=== PATIENT | male | born 1955 | race Caucasian/White ===

== ENCOUNTER 2022-07-13 07:50 | Emergency (ER) | payer OTHER, SELFPAY ==
[2022-07-13 08:00] VITALS: BP 138/73; PULSE 76; RESP 18; TEMP 36.7; O2SAT 97; BMI 31.9
--- NOTE | 2022-07-13 08:24 | CRLHL7_ITS ---
For Patients: As a result of the Cures Act, medical imaging exams and procedure reports are released immediately into your electronic medical record. You may view this report before your referring provider. If you have questions, please contact your health care provider. Indication: Crush injury Technique: Three-views left long finger Comparison: None Findings: Small chronic ossicles are present adjacent to the PIP joint and DIP joint the left long finger. No fracture. No dislocation. Impression: No sign of acute injury. Dictated by Sebastian Ramsay MD @ 07/13/2022 8:42:55 AM (Electronically Signed)
--- NOTE | 2022-07-13 08:25 | ED_ITS ---
HPI - Extremity Injury (Upper) General Chief Complaint: Extremity Pain/Injury, Upper Stated Complaint: WC/injured middle finger on left hand Time Seen by Provider: 07/13/22 08:24 History of Present Illness HPI narrative: This 66-year-old male comes in with an injury to his left middle finger. This occurred a couple days ago. He was working with a machine attempting to cut some plastic. The machine fell down onto his finger at some point. He had a small amount of bleeding under the nail. He comes in with swelling and pain of the distal portion of this finger. His range of motion is intact. Related Data Home Medications Medication Instructions Recorded Confirmed lisinopril 10 mg tablet mg 07/13/22 metformin 500 mg tablet mg 07/13/22 Previous Rx's Medication Instructions Recorded ketorolac 10 mg tablet 10 mg PO Q8H 5 days #15 tabs 07/13/22 Allergies Allergy/AdvReac Type Severity Reaction Status Date / Time No Known Drug Allergies Allergy Verified 07/13/22 08:18 Review of Systems Status of ROS: Reports: 10 or more systems reviewed and unremarkable except as noted in History and below Narrative: Constitutional: No fevers, no weight gain or loss. Eyes: No discharge. No vision changes. HENT: No congestion, no sore throat, no ear pain. Cardiovascular: No chest pain, no palpitations. Respiratory: No shortness of breath, no wheezes, no cough. Gastrointestinal: No abdominal pain, no vomiting, no diarrhea. Genitourinary: No dysuria, no hematuria. Musculoskeletal: Normal range of motion. Left middle finger injury as described above. Skin: No rashes, no pruritis. Neurological: No dizziness, weakness, sensory change, speech change. Endo/Heme/Allergies: No bruising or bleeding. No polydipsia. Pysch: no suicidality, no anxiety, no insomnia. All other systems reviewed and are negative. PFSH PFSH Social History Smoking Status: Former smoker What tobacco products do you use: cigarettes Years smoked: 4 Smoking quit date/years: >15 years ago Do you use any of these nicotine containing products: None Second hand tobacco smoke exposure: No How often do you have a drink containing alcohol: never How often do you have six or more drinks on one occasion: Never AUDIT-C Alcohol total score: 0 Non-prescribed substance use: denies use service: No Exam Narrative: Exam Narrative: Constitutional: Well-developed, well-nourished, no acute distress. HEENT: Normocephalic, atraumatic. Neck: Normal range of motion. Nontender. Supple. Heart: Intact distal pulses. Lungs: No chest discomfort. No wheezes, rhonchi, or rales. Abdomen: Nontender. Back: Normal range of motion. Extremities: Normal range of motion. The distal segment of the left middle finger is has swelling and slight bruising. The fingernail is intact. There is no sign of laceration. Skin: Intact. No rash. Warm. No erythema or pallor. Neurologic: No altered sensation. No weakness. Alert and oriented. Psychiatric: No suicidality. No anxiety or depression. No insomnia. Nursing notes and vitals signs are reviewed. Const: Vital Signs, click to edit/add: Vital Signs - 24 hr 07/13/22 08:00 Temperature 98.1 F Pulse Rate [Left] 76 Respiratory Rate 18 Blood Pressure [Le ft Upper Arm] 138/73 Pulse Oximetry 97 Oxygen Delivery Me thod Room Air Course Vital Signs Vital signs: Initial Vital Signs Temperature 98.1 F 07/13/22 08:00 Temperature Source Temporal Artery Scan 07/13/22 08:00 Pulse Rate 76 07/13/22 08:00 Pulse Rhythm 07/13/22 08:00 Respiratory Rate 18 07/13/22 08:00 Blood Pressure 138/73 07/13/22 08:00 Blood Pressure Mean 94 07/13/22 08:00 Blood Pressure Position Supine 07/13/22 08:00 Pulse Oximetry 97 07/13/22 08:00 Oxygen Delivery Method 07/13/22 08:00 Vital Signs Temperature 98.1 F 07/13/22 08:00 Pulse Rate 76 07/13/22 08:00 Respiratory Rate 18 07/13/22 08:00 Blood Pressure 138/73 07/13/22 08:00 Pulse Oximetry 97 07/13/22 08:00 Oxygen Delivery Method 07/13/22 08:00 Temperature 98.1 F 07/13/22 08:00 Pulse Rate 76 07/13/22 08:00 Respiratory Rate 18 07/13/22 08:00 Blood Pressure 138/73 07/13/22 08:00 Pulse Oximetry 97 07/13/22 08:00 Oxygen Delivery Method 07/13/22 08:00 MDM - Extremity Injury (Upper) MDM Narrative Medical decision making narrative: This patient comes in with pain and swelling in the distal portion of his left middle finger from an injury that occurred a couple days ago. There is very slight amount of bruising or erythema. It does not appear that there is an infection and there is no break in the skin or the nail. He does have swelling that is causing discomfort. X-ray of this finger shows no acute findings. The patient received a finger splint and a prescription for some tablets of Toradol. I did describe signs and symptoms that would indicate a need for return and re- evaluation. Imaging Data XR L Middle Finger: Radiologist's impression: Findings: Small chronic ossicles are present adjacent to the PIP joint and DIP joint the left long finger. No fracture. No dislocation. Impression: No sign of acute injury. Discharge Plan Discharge Clinical Impression: Finger injury Patient Disposition: Home, Self-Care Condition: Stable Additional Instructions: Wear splint as needed. Take medication as needed and indicated. Follow up with MD or return if worsening. Prescriptions: New ketorolac 10 mg tablet 10 mg PO Q8H 5 Days Qty: 15 0RF No Action metformin 500 mg tablet Label Comments: TAKE 2 TABLETS BY MOUTH TWICE DAILY WITH MEALS lisinopril 10 mg tablet Label Comments: TAKE 1 TABLET BY MOUTH DAILY Follow Up/Referrals: Bull Contreras MD [Primary Care Provider] - Stand Alone Forms: [employer] Info Instructions
--- OUTSIDE RECORDS SUMMARY | 2022-07-13 08:47 | XMS_ITS ---
:1955 Author Care Team Providers Name Role Phone Jacob Lin Primary Care Provider Unavailable Allergies None recorded. Medications Name Status Start Date Stop Date ? ? atorvastatin 10 mg tablet Active ? Not av ailable TAKE ONE TABLET BY MOUTH EVERY DAY docusate sodium 100 mg capsule Active ? N ot available Take 1 capsule every day by oral route as needed. as needed for constipation metformin 500 mg tablet Active ? Not avai lable Take 2 tablets in the morning and 1 tab let at night for a total of 1500 mg per day. Problems Name Status Onset Date Source ? Type 2 Diabetes Mellitus Active 01/02/2021 ? Dyslipidemia Active 01/02/2021 ? Procedures None recorded. Results Lab Results Date Name Specimen Result Interpretation Description Value Range Status Address ? 12/31/2020 Glycohemoglobin, High A1C 8.5 % <6.4 % ? [place] [facility] : [address] [facility] 12/31/2020 Lipid Panel, Serum ? Creatinine 0.7 ? Final ? ? ? Alt 13 ? Final ? ? ? White Blood 5.73 ? Final Count ? ? ? Hemoglobin 14.6 ? Final ? ? ? Platelet Count 200 ? Final ? ? ? Total 139 ? Final Cholesterol ? ? ? Triglycerides 256 ? Final ? ? ? Hdl 29 ? Final ? ? ? Ldl 59 ? Final 12/31/2020 CBC W/ Auto Diff ? Creatinine 0.7 ? Final ? ? ? Alt 13 ? Final ? ? ? White Blood 5.73 ? Final Count ? ? ? Hemoglobin 14.6 ? Final ? ? ? Platelet Count 200 ? Final ? ? ? Total 139 ? Final Cholesterol ? ? ? Triglycerides 256 ? Final ? ? ? Hdl 29 ? Final ? ? ? Ldl 59 ? Final 12/31/2020 CMP, Serum or ? Creatinine 0.7 ? F inal Plasma ? ? ? Alt 13 ? Final ? ? ? White Blood 5.73 ? Final Count ? ? ? Hemoglobin 14.6 ? Final ? ? ? Platelet Count 200 ? Final ? ? ? Total 139 ? Final Cholesterol ? ? ? Triglycerides 256 ? Final ? ? ? Hdl 29 ? Final ? ? ? Ldl 59 ? Final Past Encounters 10/11/2021 Administration of SARS-CoV-2 mRNA TIANNA Mcnulty: [address] [facility] [place] [address], Ph. 01/24/2021 Type 2 Diabetes Mellitus without Complic ation; Constipation; Hyperlipidemia Ez Heath MD: [address] [facility] [place] [address], Ph. Social History None recorded. Vaccine List Vaccine Type COVID-19, mRNA, LNP-S, PF, 30 mcg/0.3 mL dose, rashad-sucrose ([employer]) 10/11/2021?0.3 Plan of Care Patient Instructions 1. Increase metformin to 2 tabs in AM a nd 1 tab in PM (total of 1500 mg). 2. Plan for a repeat of labs in 3 months. 3. See your charge coordinator for your yearly eye exam. 4. Keep your appointment with your denti st tomorrow. 4. Try docusate for your bowel movement. His goal is to have 1 good BM a day or every other day. If he finds that this medicine causes more BM than said g oal, he should stop taking it. If starts feeling constipated again, he should re- start it. Reminders Provider Appointments None recorded. ? ? Lab None recorded. ? ? Referral None recorded. ? ? Procedures None recorded. ? ? Surgeries None recorded. ? ? Imaging None recorded. ? ? Vitals Height Weight BMI Blood Pressure 5 ft 7 in 202 lbs 31.6 kg/m2 141/70 mm[Hg]
--- OUTSIDE RECORDS SUMMARY | 2022-07-13 08:47 | XMS_ITS | Clinical Summary ---
:1955 External Reference #:[id number] Author Organization [facility] [place] [address] Care Team Providers Name Role Phone Rogers [facility] Unavailable Bull Contreras MD Primary Care Provider [phone] Allergies No known active allergies Medications Medication Sig Dispensed Refills Start Date End Date Status lancetsIndications: Test 2 times per 100 Each 5 02/10/2013 Active Diabetes mellitus day. type II medication order Please dispense 1 Bottle 5 02/27/2013 Active composerIndications: [employer] Diabetes mellitus test strips. Test type II 1-2 times daily. metFORMIN Take 2 Tablets 360 Tablet 3 08/09/2021 Act silviano (GLUCOPHAGE) 500 mg (1,000 mg) by mouth tabletIndications: 2 times daily with Type 2 diabetes meals. Correction mellitus without of prescription complication, from 2 weeks ago. without long-term current use of insulin (HC) atorvastatin Take 1 Tablet (10 90 Tablet 3 08/09/2021 Active (LIPITOR) 10 mg mg) by mouth at tabletIndications: bedtime. Dyslipidemia, goal LDL below 100 lisinopriL Take 1 Tablet (10 90 Tablet 3 08/09/2021 Active (PRINIVIL; ZESTRIL) mg) by mouth once 10 mg daily. tabletIndications: HTN (hypertension) nystatin Apply topically to 45 g 3 10/25/2021 Active (MYCOSTATIN) affected area(s) 2 creamIndications: times daily. Balanitis Active Problems Problem Noted Date Diabetes mellitus, type 2 10/07/2013 Adenomatous colon polyp 08/04/2013 Overview: Colonoscopy 07/2013 polyp repeat in 5 ye ars Vitamin D deficiency 01/22/2013 Eczematous dermatitis 10/03/2010 Resolved Problems Problem Noted Date Resolved Date Diabetes mellitus type II 01/21/2013 10/07/2013 Overview: a system change updated this record. Thi s will not affect patient care or billing. This comment can be deleted. Immunizations Name Administration Dates Next Due COVID-19 vaccine ([employer] 10/11/2021 30mcg/0.3mL) 12YO+ OSCAR-SUCROSE PF, MDV HepA-HepB (Twinrix) 10/08/2013, 05/08/2013 06/08/2013 Influenza A (H1N1), Inactivated 10/11/2009 Influenza, IIV3 (Age >=3 years) 05/26/2012, 06/21/2011, 08/31, 06/30/2009 Influenza, IIV4 06/07/2021, 06/04/2020 Influenza, IIV4 (=>6mos) MDV 07/14/2019, 12/16/2018, 018, 07/24/2016, 08/15/2015 Pneumococcal Poly,23-Valent 10/29/2017 (Pneumovax) Tdap 01/21/2013 Zoster (Shingrix-RZV, recombinant) 12/16/2018 Family History Medical History Relation Name Comments Diabetes Mother Relation Name Status Comments Mother Social History Tobacco Use Types Packs/Day Years Used Date Former Smoker Quit: 09/30/18 89 Smokeless Tobacco: Never Used Tobacco Cessation: Counseling Given: Yes Alcohol Use Standard Drinks/Week Comments Not Currently 0 (1 standard drink = 0.6 oz pure alcoho l) Sex Assigned at Date Recorded Not on file Obstetrics History Last Filed Vital Signs Vital Sign Reading Time Taken Comments Blood Pressure 122/71 10/25/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 Pulse 64 10/25/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 Temperature 36.5 ??C (97.7 ??F) 05/08/2013 8:11 AM CDT Respiratory Rate - - Oxygen Saturation 98% 10/25/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 Inhaled Oxygen Concentration - - Weight 85.2 kg (187 lb 12.8 oz) 10/25/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 Height 173.6 cm (5' 8.35) 10/25/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 Body Mass Index 28.27 10/25/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 Plan of Treatment Health Maintenance Due Date Last Done Comments Hepatitis C screening for age 0312/27/1973 18-79 AAA screening age 55-77 12/28/2011 Colonoscopy through age 75 07/31/2018 07/31/2013, 3 Pneumococcal series for age 65+ (2 10/29/2018 10/29/2017 - PCV) Zoster (shingles) series for age 0502/10/2019 12/16/2018 50+ (2 of 2) COVID-19 vaccine series (4 - 12/06/2021 10/11/2021, 021, Booster for Pfizer series) 12/31/2020 Influenza for age 65+ 05/31/2022 06/07/2021, 06/04/2020, 07/14/2019, Additional history exists Depression screening for age 12+ 08/09/2022 08/09/2021 BMI (ht and wt on same day) for 10/25/2022 10/25/2021, 08/02, age 18+ 08/09/2021 Tetanus booster 01/21/2023 01/21/2013 Lipids for age 45-75 10/23/2026 10/23/2021, 07/26/2021, 02/04/2014, Additional history exists Tdap Completed 01/21/2013 Results Not on filefrom Last 3 Months Insurance Payer Benefit Plan / Subscriber ID Effective Phone Address T ype Group Dates WC WORKERS WC WORKERS COMP [id number] 2009-Pres [phone] [address] ent [address] [place] [address] [employer] OF [id number] 2022-Pres [address] [place] [id number] [place] [address] Abdirahmna Yi Workers Comp Self 1955 [address] ([address]) [address] [place] [id number] Care Teams Architecture Consultant Relationship Specialty Start Date End Date Votel, Bull Caldwell MD PCP - General Family Practice 08/09/[address] [place] [address] [facility] 08/01/[address] [place] [address]
== END 2022-07-13 09:20 | disposition home or self-care (01) ==
PROVIDERS: Emergency Provider Emergency Medicine Emergency Medical Services; PCP Family Medicine
DX: S67.193A Crushing injury of left middle finger, initial encounter (principal); X58.XXXA Exposure to other specified factors, initial encounter; Y93.89 Activity, other specified; Y92.89 Other specified places as the place of occurrence of the external cause; Y99.0 Civilian activity done for income or pay
CPT/HCPCS: 73140; 99283; 99284

== ENCOUNTER 2025-01-11 09:41 | Outpatient (CLI) | payer MEDICARE, SELFPAY | END 2025-01-11 09:42 | disposition home or self-care (01) | PROVIDERS: PCP Family Medicine; Visit Provider Family Medicine | DX: E11.65 Type 2 diabetes mellitus with hyperglycemia (principal); I10 Essential (primary) hypertension; Z79.84 Long term (current) use of oral hypoglycemic drugs | CPT/HCPCS: 80048; 82043; 82570 ==

== ENCOUNTER 2025-02-11 08:57 | Outpatient (CLI) | payer MEDICARE, SELFPAY ==
--- NOTE | 2025-02-11 10:15 | P.ANES_ITS ---
Anesthesia Charges Start Date/Time Anesthesia Start Date: 02/11/25 Anesthesia Start Time: 09:44 Stop Date/Time Anesthesia Stop Date: 02/11/25 Anesthesia Stop Time: 10:11 Coding CPT Codes CPT Codes: JAMI LWR INTST NDSC NOS - 56347 ([id number]) P2 - PATIENT W/MILD SYST DISEASE, QK - TOOLSMITH 2-4 CNCRNT ANES PROC, QX - DRYWALL WORKER SVC W/ MD MED DIRECTION
--- NOTE | 2025-02-11 10:15 | W.ANESCHARGE ---
Anesthesia Charges Start Date/Time Anesthesia Start Date: 02/11/25 Anesthesia Start Time: 09:44 Stop Date/Time Anesthesia Stop Date: 02/11/25 Anesthesia Stop Time: 10:11 Coding CPT Codes CPT Codes: JAMI LWR INTST NDSC NOS - 77548 ([id number]) P2 - PATIENT W/MILD SYST DISEASE, QK - PAPER RULER 2-4 CNCRNT ANES PROC, QX - HEAD KNITTING MACHINE FIXER SVC W/ MD MED DIRECTION
--- NOTE | 2025-02-11 10:22 | P.ANES_ITS ---
Anesthesia Charges Start Date/Time Anesthesia Start Date: 02/11/25 Anesthesia Start Time: 09:44 Stop Date/Time Anesthesia Stop Date: 02/11/25 Anesthesia Stop Time: 10:11 Coding CPT Codes CPT Codes: JAMI LWR INTST NDSC NOS - 00571 ([id number]) P2 - PATIENT W/MILD SYST DISEASE, QK - STORE ADMINISTRATOR 2-4 CNCRNT ANES PROC, QX - STOCK TRACER SVC W/ MD MED DIRECTION
--- NOTE | 2025-02-11 10:22 | W.ANESCHARGE ---
Anesthesia Charges Start Date/Time Anesthesia Start Date: 02/11/25 Anesthesia Start Time: 09:44 Stop Date/Time Anesthesia Stop Date: 02/11/25 Anesthesia Stop Time: 10:11 Coding CPT Codes CPT Codes: JAMI LWR INTST NDSC NOS - 80113 ([id number]) P2 - PATIENT W/MILD SYST DISEASE, QK - JOURNALISTS AND OTHER WRITERS 2-4 CNCRNT ANES PROC, QX - FABRICATOR ASSEMBLER METAL PRODUCTS SVC W/ MD MED DIRECTION
== END 2025-02-11 08:58 | disposition home or self-care (01) ==
LOC: OP CLINIC 08:57
PROVIDERS: PCP Family Medicine; Visit Provider Surgery
DX: Z12.11 Encounter for screening for malignant neoplasm of colon (principal); D12.2 Benign neoplasm of ascending colon
CPT/HCPCS: 00811; 45385; 88305; T1013; J2704

== ENCOUNTER 2025-08-10 08:14 | Outpatient (CLI) | payer MEDICARE, SELFPAY ==
--- NOTE | 2025-08-10 08:15 | CRLHL7_ITS ---
For Patients: As a result of the Cures Act, medical imaging exams and procedure reports are released immediately into your electronic medical record. You may view this report before your referring provider. If you have questions, please contact your health care provider. Examination: US abdominal aorta Indication: Abdominal aortic aneurysm screening. Technique: Norton scale and color Doppler images of the aorta and common iliac arteries are obtained. Comparison: None Findings: Proximal aorta: 2.7 x 2.9 cm Mid aorta: 1.7 x 1.8 cm Distal aorta: 1.6 x 1.6 cm Right common iliac artery: 0.9 x 1.1 cm Left common iliac artery: 1.3 x 1.4 cm Impression: No abdominal aortic aneurysm. Dictated by Sebastian Ramsay MD @ 08/10/2025 9:23:37 AM (Electronically Signed)
== END 2025-08-10 08:15 | disposition home or self-care (01) ==
LOC: US 08:16
PROVIDERS: PCP Family Medicine; Visit Provider Family Medicine
DX: Z13.6 Encounter for screening for cardiovascular disorders (principal)
CPT/HCPCS: 76706; T1013